=== PATIENT | female | born 1960 | race Caucasian/White ===

== ENCOUNTER 2016-07-27 12:33 | Emergency (ER) | payer MEDICARE ==
[2011-06-23 12:31] VITALS: BMI 37.8
== END 2016-07-27 13:54 | disposition home or self-care (01) ==
LOC: D.ER 12:33
DX: K02.9 Dental caries, unspecified (principal); K08.89 Other specified disorders of teeth and supporting structures

== ENCOUNTER 2016-09-24 19:07 | Emergency (ER) | payer MEDICARE ==
[2011-06-23 12:31] VITALS: BMI 37.8
[2016-09-24 19:53] LABS: BASOPHILS 0.2 % (0-2); EOSINOPHILS 0.7 % (0-7); HEMATOCRIT 40.8 % (36.0-48.0); HEMOGLOBIN 14.2 g/dL (12-16); IMMATURE GRANULOCYTES 0.4 % (0-5); LYMPHOCYTES 25.5 % (15-50); MCH 32.3 pg (26.0-34.0); MCHC 34.8 g/dL (31.0-37.0); MCV 92.7 fL (80.0-100.0); MEAN PLATELET VOLUME 9.6 fL (7.4-10.4); MONOCYTES 7.4 % (2-11); NEUTROPHILS 65.8 % (40-80); RDW 12.1 % (11.5-14.5); WBC 11.8 10x3/uL (4.8-10.8)
[2016-09-24 19:54] LABS: PLATELET COUNT 307 10x3/uL (130-400)
[2016-09-24 20:02] LABS: ALBUMIN 3.6 g/dL (3.4-5.0); ALKALINE PHOSPHATASE 69 U/L (46-116); ALT (SGPT) 27 U/L (10-68); BILIRUBIN - TOTAL 0.23 mg/dL (0.2-1.3); CALC OSMOLALITY 269 mosm/kg (275-300); CARBON DIOXIDE 27.3 mmol/L (21.0-32.0); CHLORIDE - SERUM 99 mmol/L (98-107); CREATININE - SERUM 0.7 mg/dL (0.6-1.3); GLUCOSE 167 mg/dL (74-106); POTASSIUM - SERUM 4.1 mmol/L (3.5-5.1); PROTEIN - SERUM 6.4 g/dL (6.4-8.2); SODIUM 134 mmol/L (136-145); UREA NITROGEN 8 mg/dL (7-18); eGFR NON AFRICAN AMERICAN > 90 mL/min (90-120)
[2016-09-24 20:13] LABS: CHOL - HDL RATIO 7.6 ratio (2.3-4.1); CHOLESTEROL, TOTAL 236 mg/dL (0-200); CKMB 0.2 U/L (0.0-3.6); CREATINE KINASE 31 UL (21-215); HDL CHOLESTEROL 31 mg/dL (32-96); LDL CHOLESTEROL 152 mg/dL (0-100); LDL-HDL RATIO 4.9 ratio (1.5-3.5); TRIGLYCERIDE 265 mg/dL (30-200); TROPONIN-I < 0.017 ng/mL (0.000-0.060)
== END 2016-09-24 21:00 | disposition home or self-care (01) ==
LOC: D.ER 19:07
PROVIDERS: Emergency Medicine
DX: R09.1 Pleurisy (principal); F17.200 Nicotine dependence, unspecified, uncomplicated; J44.9 Chronic obstructive pulmonary disease, unspecified